=== PATIENT | female | born 1980 ===

== ENCOUNTER 2023-05-04 16:17 | Inpatient (IN) | payer OTHER ==
[~2023-05-04] VITALS: Ht 157.5 cm; Wt 63.5 kg
[2023-05-05] MEDS ORDERED: [UNRECOGNIZED DRUG - OTHER] IH (13:19)
== END 2023-05-14 17:47 | disposition home or self-care (01) | DRG 743 ==
LOC: O/R 05-12 11:02 → SURH 05-12 12:00 → OB/GYN 05-12 18:27
PROVIDERS: ADMIT Obstetrics & Gynecology Obstetrics; ATTEND Obstetrics & Gynecology Obstetrics
PROC: 0UT90ZZ Resection of Uterus, Open Approach (ICD-10-PCS; principal; 2023-05-12 13:00)
DX: D25.1 Intramural leiomyoma of uterus (principal); D25.2 Subserosal leiomyoma of uterus; Z20.822 Contact with and (suspected) exposure to COVID-19